=== PATIENT | male | born 1940 | race American Indian/Alaskan Native ===

== ENCOUNTER 2016-09-14 18:47 | Emergency (ER) | payer MEDICARE ==
[2016-09-14 19:16] VITALS: BMI 29.0
[2016-09-14 19:20] VITALS: TEMP 98.8
--- NOTE | 2016-09-14 21:13 | ED PDOC ---
Arrival/HPI - General Chief Complaint: Finger,Hand,&Wrist Time Seen by Provider: 09/14/16 19:20 Historian: Patient - History of Present Illness Narrative History of Present Illness (Text): 09/14/16 21:19 Patient reports sudden onset of atraumatic L wrist pain which started yesterday while he was driving home, states that he saw his pmd today and was sent for an outpatient XR, which he had done today at this hospital, but does not know the results. He adds that he was advised by his pmd to go to the ER to receive medication for his symptoms. Otherwise: (-) numbness, (-) other injury , (-) fever, (-) other joint pain. PMD Vaibhav Past Medical History - Provider Review Nursing Documentation Reviewed: Yes - Cardiac Hx Hypertension: Yes Hx Pacemaker: No - Neurological Hx Paralysis: No - Hematological/Oncological Hx Blood Transfusions: Yes Hx Blood Transfusion Reaction: No - Musculoskeletal/Rheumatological Hx Musculoskeletal Disorders: Yes (LOWER BACK) - Psychiatric Hx Emotional Abuse: No Hx Physical Abuse: No Hx Substance Use: No - Surgical History Other/Comment: Prostate surgery,"Bypass surgery" in 1979. - Anesthesia Hx Anesthesia Reactions: Yes (LONG TIME RECOVERING FROM SPINAL) Hx Malignant Hyperthermia: No - Suicidal Assessment Feels Threatened In Home Enviroment: No Family/Social History - Physician Review Nursing Documentation Reviewed: Yes Family/Social History: No Known Family HX Smoking Status: Never Smoked Hx Alcohol Use: Yes (2 TO 3 SHOTS SCOTCH ON WEEKENDS) Hx Substance Use: No Allergies/Home Meds Allergies/Adverse Reactions: Allergies No Known Allergies Allergy (Verified 03/28/15 04:50) Home Medications: Home Meds Medication Instructions Recorded Confirmed Aspirin 81 mg PO QAM 07/24/13 03/28/15 Atenolol [Tenormin] 12.5 tab PO QAM 07/24/13 03/28/15 Atorvastatin [Lipitor] 40 mg PO QAM 07/24/13 03/28/15 Gabapentin [Neurontin] 100 mg PO PRN PRN 11/01/14 03/28/15 NIFEdipine ER [Procardia XL] 1 tab PO DAILY 11/04/14 03/28/15 Review of Systems - Review of Systems Constitutional: Normal. absent: Fatigue, Weight Change, Fevers Musculoskeletal: Normal, Arthralgias. absent: Back Pain, Neck Pain Skin: Normal. absent: Rash, Pruritis, Skin Lesions Physical Exam - Physical Exam Narrative Physical Exam (Text): 09/14/16 21:17 GENERAL APPEARANCE: Patient is awake, alert, oriented x 3, in no acute distress. SKIN: Warm, dry; (-) cyanosis. WRIST: (+) Warm to touch, (+) tenderness to light touch, (+) swelling, (-) ecchymosis of the volar wrist. (-) deformity. (-) snuff-box tenderness. (-) distal neurovascular deficit. Elbow, hand and digits: (-) tenderness. Vital Signs Temp Pulse Resp BP Pulse Ox 09/14/16 19:16 98.8 F 57 L 18 162/84 H 95 Medical Decision Making ED Course and Treatment: 09/14/16 21:13 76 yo M c/o sudden onset of atraumatic L wrist pain, likely gout, consider carpal tunnerl syndrome. Of note, patient was seen in this ER on 03/28/15 for similar complaint of L wrist pain, at that time patient had mentioned that he has a h/o gout and that his symptoms were similar. XR L wrist: (-) fracture, as read by PA. Patient given toradol IM, colchicine 1.2 mg PO, followed by another dose of colchicine 0.6 mg an hour later to treat acute flare up of gout. Patient is requesting a splint for his wrist. Cock up splint applied. Based on history and exam, plan will be for outpatient follow up with pmd. RX sent to patient's pharmacy. Patient states he fully agrees with and understands discharge instructions. States that he agrees with the plan and disposition. Verbalized and repeated discharge instructions and plan. I have given the patient opportunity to ask any additional questions. Follow up with primary care physician in 1-2 days without fail. Advised to take medication as prescribed. Return to the emergency room at any time for any new or worsening symptoms. - Medication Orders Current Medication Orders: Colchicine (Colocrys) 1.2 mg PO ONCE ONE Stop: 09/15/16 20:01 Last Admin: 09/14/16 20:47 Dose: 1.2 MG Colchicine (Colocrys) 0.6 mg PO ONCE ONE Stop: 09/15/16 21:01 Discontinued Medications Ketorolac Tromethamine (Toradol) 60 mg IM STAT STA Stop: 09/14/16 19:56 Last Admin: 09/14/16 20:35 Dose: 60 MG IM Administration Charges Document 09/14/16 20:35 SF (Rec: 09/14/16 20:35 SF [id number] Injection Site MAR Injection Site Left Deltoid Charges for Administration # of IM Administrations 1 Disposition/Present on Arrival - Present on Arrival Any Indicators Present on Arrival: No History of DVT/PE: No History of Uncontrolled Diabetes: No Urinary Catheter: No History of Decub. Ulcer: No History Surgical Site Infection Following: None - Disposition Have Diagnosis and Disposition been Completed?: Yes Diagnosis: Left wrist pain, Gout Disposition: HOME/ ROUTINE Disposition Time: 21:22 Patient Plan: Discharge Condition: GOOD Discharge Instructions (ExitCare): Gout (ED), Arthralgia (ED) Print Language: CENTRAL AFRICAN Additional Instructions: Thank you for letting us take care of you today. You were treated for L wrist pain, likely gout. The emergency medical care you received today was directed at your acute symptoms. If you were prescribed any medication, please fill it and take as directed. It may take several days for your symptoms to resolve. Return to the Emergency Department if your symptoms worsen, do not improve, or if you have any other problems. Please contact your doctor in 2 days for re-evaluation and follow up. Bring any paperwork you were given at discharge with you along with any medications you are taking to your follow up visit. Our treatment cannot replace ongoing medical care by a primary care provider (PCP) outside of the emergency department. Thank you for allowing the [facility] team to be part of your care today. Prescriptions: Colchicine 0.6 mg PO DAILY #10 tablet Indomethacin [Indocin] 50 mg PO TID #15 cap
[2016-09-14 21:16] VITALS: BP 169/76; PULSE 60; RESP 16
[2016-09-14 21:43] VITALS: O2SAT 98
== END 2016-09-14 21:43 | disposition home or self-care (01) ==
LOC: ED 18:47
DX: M25.532 Pain in left wrist (principal); M10.9 Gout, unspecified
CPT/HCPCS: 96372; 99283; J1885

== ENCOUNTER 2016-10-06 14:30 | Emergency (ER) | payer MEDICARE ==
[2016-10-06 14:30] VITALS: BMI 29.0
[2016-10-06 14:52] VITALS: TEMP 97.8
--- NOTE | 2016-10-06 15:14 | ED PDOC ---
Arrival/HPI - General Chief Complaint: Lower Extremity Problem/Injury Time Seen by Provider: 10/06/16 14:52 Historian: Patient - History of Present Illness Narrative History of Present Illness (Text): 10/06/16 15:11 76 y/o male, pmh including htn/hyperlipidemia/cad, nkda, c/o lt. lower extremity with swelling and pain for months with no fall or trauma. Pt. stated that he has stockings at home, doesn't wear it, walks and stands alot which he also like his "salt." Pt. has no chest pain or shortness of breath, no palpitation, no dizziness, no fatigue, no shortness of breath upon exertion, no rash, no change in appetite, no other medical or psychological complaints. Past Medical History - Provider Review Nursing Documentation Reviewed: Yes - Cardiac Hx Hypertension: Yes - Pulmonary Hx Respiratory Disorders: No - Neurological Hx Neurological Disorder: No Hx Paralysis: No - HEENT Hx HEENT Disorder: No - Renal Hx Renal Disorder: No - Endocrine/Metabolic Hx Endocrine Disorders: No - Hematological/Oncological Hx Blood Transfusions: Yes Hx Blood Transfusion Reaction: No - Integumentary Hx Dermatological Disorder: No - Musculoskeletal/Rheumatological Hx Musculoskeletal Disorders: Yes (LOWER BACK) Hx Gout: Yes Other/Comment: NECK PAIN - Gastrointestinal Hx Gastrointestinal Disorders: No - Genitourinary/Gynecological Hx Prostate Problems: Yes - Psychiatric Hx Psychophysiologic Disorder: No Hx Emotional Abuse: No Hx Physical Abuse: No Hx Substance Use: No - Surgical History Other/Comment: Prostate SEED,CABG - Anesthesia Hx Anesthesia: Yes - Suicidal Assessment Feels Threatened In Home Enviroment: No Family/Social History - Physician Review Nursing Documentation Reviewed: Yes Family/Social History: Unknown Family HX Smoking Status: Never Smoked Hx Alcohol Use: Yes Hx Substance Use: No Allergies/Home Meds Allergies/Adverse Reactions: Allergies No Known Allergies Allergy (Verified 10/06/16 14:42) Home Medications: Home Meds Medication Instructions Recorded Confirmed Aspirin 81 mg PO QAM 07/24/13 10/06/16 Atenolol [Tenormin] 12.5 tab PO QAM 07/24/13 10/06/16 Atorvastatin [Lipitor] 40 mg PO QAM 07/24/13 10/06/16 Gabapentin [Neurontin] 100 mg PO PRN PRN 11/01/14 10/06/16 NIFEdipine ER [Procardia XL] 1 tab PO DAILY 11/04/14 10/06/16 Review of Systems - Review of Systems Constitutional: absent: Fatigue, Fevers Eyes: absent: Vision Changes ENT: absent: Hearing Changes Respiratory: absent: Cough Cardiovascular: Edema, Calf Pain. absent: Chest Pain Gastrointestinal: absent: Abdominal Pain, Nausea, Vomiting Musculoskeletal: absent: Arthralgias, Back Pain Neurological: absent: Headache, Dizziness, Focal Weakness, Speech Changes Physical Exam Vital Signs Reviewed: Yes Vital Signs Temp Pulse Resp BP Pulse Ox 10/06/16 16:44 49 L 18 151/65 H 98 10/06/16 15:27 97.8 F 46 L 18 153/69 H 98 10/06/16 14:43 97.8 F 46 L 16 153/69 H 100 Temperature: Afebrile Blood Pressure: Hypertensive Pulse: Bradycardic Respiratory Rate: Normal Appearance: Positive for: Well-Appearing, Non-Toxic, Comfortable Pain Distress: Mild Mental Status: Positive for: Alert and Oriented X 3 - Systems Exam Head: Present: Atraumatic, Normocephalic Pupils: Present: PERRL Extroacular Muscles: Present: EOMI Conjunctiva: Present: Normal Mouth: Present: Moist Mucous Membranes Neck: Present: Normal Range of Motion Respiratory/Chest: Present: Clear to Auscultation, Good Air Exchange. No: Respiratory Distress, Accessory Muscle Use, Wheezes, Decreased Breath Sounds, Rales, Retracting, Rhonchi, Tachypneic, Tender to Palpation Cardiovascular: Present: Regular Rate and Rhythm, Normal S1, S2, Other (2+ edema noted bilaterally. ). No: Murmurs Abdomen: Present: Normal Bowel Sounds. No: Tenderness, Distention, Peritoneal Signs, Rebound, Guarding Back: Present: Normal Inspection Upper Extremity: Present: Normal Inspection. No: Cyanosis, Edema Lower Extremity: Present: Normal Inspection, Other (bilateral lower extremities : no tenderness or swelling except 2+ pedal edema noted bilaterally with skin intact, no laceration or abrasion, FROM without limitation, sensation intact, motor 5/5, +DPPT pulses, capillary refill< 2 seconds, neurovascular intact. ). No: Edema Neurological: Present: GCS=15, CN II-XII Intact, Speech Normal Skin: Present: Warm, Dry, Normal Color. No: Rashes Psychiatric: Present: Alert, Oriented x 3, Normal Insight, Normal Concentration Medical Decision Making ED Course and Treatment: 10/06/16 15:15 -labs/bnp -LLE venuous doppler -EKG for bradycardia which might be from atenolol -IV 10/06/16 17:26 -EKG:Sinus Bradycardia @ 48 BPM, no ST elevation or depression, no T wave inversion, 1st degree AV block, compared with previous ekg. -LLE venuous doppler show as per preliminary report, no acute DVT. -Labs show no acute findings except BNP 600 with no previous comparison, Creatin 1.7 from 2.2 -I discussed all labs with the patient, advised to readjust atenolol dosage with his resist coater developer DR. Marcus and PMD including the bradycardia at upper 40s and BNP 600 with pedal edema but no cardiopulmonary complaints at this time. -I discussed with DR. Lee about the BNP level and agreed no diuretic indicated at this this time as the patient will see his pmd on this upcoming tuesday which is 2 days from today. -Discharge home with education on follow up with your own pmd and Dr. Marcus ( resist coater developer) within 2 days regarding about the BNP level 600 with bilateral pedal edema plus adjust your atenolol level if you feel fatigue, continue your stockings, elevation of leg, avoid excessive walking or standing, decrease salt intake, return to the ER for any new or worsening signs or symptoms. - Lab Interpretations Lab Results: 10/06/16 16:00 10/06/16 16:00 Lab Results 10/06/16 16:00: Sodium 143, Potassium 4.0, Chloride 105, Carbon Dioxide 28, Anion Gap 14, BUN 19, Creatinine 1.7 H, Est GFR ( Amer) 47, Est GFR (Non- Af Amer) 39, Random Glucose 94, Calcium 9.4, Total Bilirubin 0.5, AST 27, ALT 30 , Alkaline Phosphatase 69, NT-Pro-B Natriuret Pep 600 H, Total Protein 7.9, Albumin 4.1, Globulin 3.7, Albumin/Globulin Ratio 1.1 10/06/16 16:00: WBC 3.6 L, RBC 3.15 L, Hgb 10.0 L, Hct 30.0 L, MCV 95.2, MCH 31.7, MCHC 33.3, RDW 14.5, Plt Count 207, MPV 11.7 H, Gran % 39.5 L, Lymph % ( Auto) 46.7 H, [place] % (Auto) 7.5 H, Eos % (Auto) 5.5 H, Baso % (Auto) 0.8, Gran # 1.43, Lymph # 1.7, [place] # 0.3, Eos # 0.2, Baso # 0.03 I have reviewed the lab results: Yes Interpretation: Abnormal lab values (BNP 600 with no previous comparison, Creatin 1.7 from 2.2) - RAD Interpretation Radiology Orders: 10/06/16 15:10 DUPLEX LOWER EXTRM VEIN LEFT [US] Stat As per preliminary report, no acute DVT Platinum Smith: Radiologist - EKG Interpretation EKG Interpretation (Text): 10/06/16 15:44 Sinus Bradycardia @ 48 BPM, no ST elevation or depression, no T wave inversion, 1st degree AV block, compared with previous ekg. Interpreted by ED Physician: Yes Type: 12 lead EKG Comparison: Com.w/previous EKG - PA / PALLETIZER / Resident Statement MD/DO has reviewed & agrees with the documentation as recorded. Disposition/Present on Arrival - Present on Arrival Any Indicators Present on Arrival: No History of DVT/PE: No History of Uncontrolled Diabetes: No Urinary Catheter: No History of Decub. Ulcer: No History Surgical Site Infection Following: None - Disposition Have Diagnosis and Disposition been Completed?: Yes Diagnosis: Pedal edema, Leg pain, left, Elevated brain natriuretic peptide (BNP) level Disposition: HOME/ ROUTINE Disposition Time: 17:31 Patient Plan: Discharge Condition: GOOD Additional Instructions: Discharge home with education on follow up with your own pmd and Dr. Marcus ( resist coater developer) within 2 days regarding about the BNP level 600 with bilateral pedal edema plus adjust your atenolol level if you feel fatigue, take tylenol for pain as needed, continue your stockings, elevation of leg, avoid excessive walking or standing, decrease salt intake, return to the ER for any new or worsening signs or symptoms. Referrals: Sukhdeep Landis MD [Primary Care Provider] - Follow up with primary Raymundo Marcus MD [Staff Provider] - Follow up with primary Forms: WORK NOTE
[2016-10-06 15:27] VITALS: RESP 18; O2SAT 98
[2016-10-06 16:17] LABS: ADD MANUAL DIFF? NO
[2016-10-06 16:24] LABS: BASO # 0.03 K/mm3 (0.0-2.0); BASO % 0.8 % (0.0-3.0); EOS # 0.2 (0.0-0.7); EOS % 5.5 % (1.5-5.0); GRAN # 1.43 (1.4-6.5); GRAN % 39.5 % (50.0-68.0); LYMPH # 1.7 (1.2-3.4); LYMPH % 46.7 % (22.0-35.0); MEAN CELL VOLUME 95.2 fL (80.0-105.0); MEAN CORPUSCULAR HEMOGLOBIN 31.7 pg (25.0-35.0); MEAN CORPUSCULAR HGB CONC 33.3 g/dl (31.0-37.0); MEAN PLATELET VOLUME 11.7 fl (7.0-11.0); MONO # 0.3 (0.1-0.6); MONO % 7.5 % (1.0-6.0); PLATELET COUNT 207 10^3/uL (120.0-450.0); RED CELL DISTRIBUTION WIDTH 14.5 % (11.5-14.5); WHITE BLOOD COUNT 3.6 10^3/ul (4.5-11.0)
[2016-10-06 16:37] LABS: ALB/GLOB RATIO 1.1 (1.1-1.8); BILIRUBIN,TOTAL 0.5 mg/dL (0.2-1.3); CALCIUM 9.4 mg/dL (8.4-10.5); TOTAL PROTEIN 7.9 g/dL (5.8-8.3)
[2016-10-06 17:42] VITALS: BP 148/63; PULSE 51
--- NOTE | 2016-10-06 18:37 | CARD ---
APPROVED REPORT EKG Measurement Heart [id number] <Conclusion> Marked sinus bradycardia with sinus arrhythmia with 1st degree AV block Abnormal ECG
--- NOTE | 2016-10-06 18:38 | US ---
PROCEDURE: Left lower extremity venous US HISTORY: Leg pain and swelling. Evaluate for DVT. PHYSICIAN(S): Raymundo Bass MD. TECHNIQUE: Duplex sonography and color-flow Doppler with graded compression were used to evaluate the deep venous system of the left lower extremity. FINDINGS: The visualized deep venous system of the left lower extremity is sonographically normal and compressible. Normal wave forms and augmentation are seen. There is no sonographic evidence for deep venous thrombosis in the visualized segments of the left lower extremity. IMPRESSION: 1. No sonographic evidence for deep venous thrombosis in the visualized segments of the left lower extremity.
== END 2016-10-06 17:47 | disposition home or self-care (01) ==
LOC: ED 14:30
DX: M79.605 Pain in left leg (principal); R60.0 Localized edema; R79.89 Other specified abnormal findings of blood chemistry; I10 Essential (primary) hypertension; E78.5 Hyperlipidemia, unspecified; I25.10 Atherosclerotic heart disease of native coronary artery without angina pectoris

== ENCOUNTER 2017-04-24 14:09 | Emergency (ER) | payer MEDICARE ==
[2017-04-24 14:17] VITALS: BMI 29.0
[2017-04-24 14:24] VITALS: TEMP 97.7
[2017-04-24] MEDS ORDERED: Ipratropium 0.02% Inhal Soln (0.5 mg/2.5 ml) UD IH STA (14:44)
[2017-04-24 15:31] LABS: BASO # 0.02 K/mm3 (0.0-2.0); BASO % 0.5 % (0.0-3.0); EOS # 0.3 (0.0-0.7); EOS % 7.2 % (1.5-5.0); GRAN # 2.05 (1.4-6.5); GRAN % 48.8 % (50.0-68.0); HEMATOCRIT 29.1 % (42.0-52.0); LYMPH # 1.5 (1.2-3.4); LYMPH % 36.3 % (22.0-35.0); MEAN CELL VOLUME 95.7 fl (80.0-105.0); MEAN CORPUSCULAR HEMOGLOBIN 31.6 pg (25.0-35.0); MEAN PLATELET VOLUME 11.3 fl (7.0-11.0); MONO # 0.3 (0.1-0.6); MONO % 7.2 % (1.0-6.0); RED CELL DISTRIBUTION WIDTH 14.3 % (11.5-14.5); WHITE BLOOD COUNT 4.2 10^3/ul (4.5-11.0)
[2017-04-24 15:34] LABS: VENOUS BLOOD GAS BASE EXCESS 1.5 mmol/L (0.0-2.0); VENOUS BLOOD PH 7.38 (7.32-7.43)
[2017-04-24 15:48] LABS: INR 1.1 (0.93-1.08); PARTIAL THROMBOPLASTIN TIME 29.5 Seconds (25.1-36.5)
[2017-04-24 15:52] LABS: POTASSIUM 3.9 mmol/L (3.6-5.0)
[2017-04-24 16:01] LABS: TROPONIN I 0.02 ng/mL
[2017-04-24 16:46] LABS: ALB/GLOB RATIO 1.3 (1.1-1.8); BILIRUBIN,TOTAL 0.6 mg/dL (0.2-1.3); CALCIUM 9.4 mg/dL (8.4-10.5); TOTAL PROTEIN 7.8 g/dL (5.8-8.3)
[2017-04-24 17:14] VITALS: PULSE 49; RESP 17; O2SAT 97
--- NOTE | 2017-04-24 17:19 | ED PDOC ---
Arrival/HPI - General Chief Complaint: Cough, Cold, Congestion Time Seen by Provider: 04/24/17 14:25 Historian: Patient - History of Present Illness Narrative History of Present Illness (Text): 04/24/17 17:21 A 77 year old male presents to the emergency department complaining of dry cough. Patient with past medical history of hyperlipidemia, CAD and hypertension , recently placed on Lisinopril, formerly on Nifedipine. PMD prescribed him Lisinopril a month ago, only took it for two weeks, stopped when he had a side effect of cough. Patient is now complaining of persistent chronic dry cough for a month. After PMD stopped Lisinopril 2 weeks ago, cough persisted. Since then, cough recalcitrant to a course of azithromycin and prescription of tessalon perles. PMD switched patient to hydrochlorothiazide. Patient denies any shortness of breath, fever, chills, palpitations, mucus expectoration or any other complaints at this time. Time/Duration: Other (month) Symptom Onset: Sudden Symptom Course: Unchanged Activities at Onset: Rest Context: Home Past Medical History - Provider Review Nursing Documentation Reviewed: Yes - Infectious Disease Hx of Infectious Diseases: None - Cardiac Hx Hypertension: Yes Other/Comment: 1 bypass 1980 - Pulmonary Hx Respiratory Disorders: No - Neurological Hx Neurological Disorder: No Hx Paralysis: No - HEENT Hx HEENT Disorder: No - Renal Hx Renal Disorder: No - Endocrine/Metabolic Hx Endocrine Disorders: No - Hematological/Oncological Hx Blood Transfusions: Yes Hx Blood Transfusion Reaction: No - Integumentary Hx Dermatological Disorder: No - Musculoskeletal/Rheumatological Hx Musculoskeletal Disorders: Yes (LOWER BACK) Hx Gout: Yes Other/Comment: NECK PAIN - Gastrointestinal Hx Gastrointestinal Disorders: No - Genitourinary/Gynecological Hx Prostate Problems: Yes - Psychiatric Hx Psychophysiologic Disorder: No Hx Substance Use: No - Surgical History Hx Coronary Artery Bypass Graft: Yes - Anesthesia Hx Anesthesia: Yes Hx Anesthesia Reactions: No Hx Malignant Hyperthermia: No - Suicidal Assessment Feels Threatened In Home Enviroment: No Family/Social History - Physician Review Nursing Documentation Reviewed: Yes Family/Social History: No Known Family HX Smoking Status: Never Smoked Hx Alcohol Use: Yes Hx Substance Use: No Allergies/Home Meds Allergies/Adverse Reactions: Allergies No Known Allergies Allergy (Verified 10/06/16 14:42) Home Medications: Home Meds Medication Instructions Recorded Confirmed Aspirin 81 mg PO QAM 07/24/13 04/24/17 Atorvastatin [Lipitor] 40 mg PO QAM 07/24/13 04/24/17 Gabapentin [Neurontin] 100 mg PO PRN PRN 11/01/14 04/24/17 cloNIDine [Catapres] 0.1 mg PO BID 04/24/17 04/24/17 Review of Systems - Physician Review All systems were reviewed & negative as marked: Yes - Review of Systems Constitutional: absent: Fevers, Other (chills) Respiratory: Cough. absent: SOB Cardiovascular: absent: Palpitations Physical Exam Vital Signs Reviewed: Yes Vital Signs Temp Pulse Resp BP Pulse Ox 04/24/17 17:13 49 L 17 111/48 L 97 04/24/17 14:11 97.7 F 86 16 191/88 H 98 Temperature: Afebrile Blood Pressure: Hypertensive Pulse: Regular Respiratory Rate: Normal Appearance: Positive for: Well-Appearing, Non-Toxic, Comfortable Pain Distress: None Mental Status: Positive for: Alert and Oriented X 3 - Systems Exam Head: Present: Atraumatic, Normocephalic Pupils: Present: PERRL Extroacular Muscles: Present: EOMI Conjunctiva: Present: Normal Mouth: Present: Moist Mucous Membranes Neck: Present: Normal Range of Motion Respiratory/Chest: Present: Clear to Auscultation, Good Air Exchange. No: Respiratory Distress, Accessory Muscle Use Cardiovascular: Present: Regular Rate and Rhythm, Normal S1, S2. No: Murmurs Abdomen: Present: Normal Bowel Sounds. No: Tenderness, Distention, Peritoneal Signs Back: Present: Normal Inspection Upper Extremity: Present: Normal Inspection. No: Cyanosis, Edema Lower Extremity: Present: Normal Inspection. No: Edema Neurological: Present: GCS=15, CN II-XII Intact, Speech Normal Skin: Present: Warm, Dry, Normal Color. No: Rashes Psychiatric: Present: Alert, Oriented x 3, Normal Insight, Normal Concentration Medical Decision Making ED Course and Treatment: 04/24/17 17:20 Impression: A 77 year old male with dry cough. Plan: -- EKG -- chest xray -- labs -- Urinalysis -- Atrovent -- Reassess and disposition Prior Visits: Notes and results from previous visits were reviewed. Patient last reported to the emergency department on 10/06/16 for evaluation of left lower extremity swelling and pain. Progress Notes: EKG: Ordered, reviewed, and independently interpreted the EKG. Rate : 64 BPM Rhythm : NSR Interpretation : Concomitant 1st deg av block, no other arrhythmogenic intervals , no ischemic ST/T segments Chest xray is negative. Labs show significant mild dehydration, baseline anemia , very slight creatininemia. Will discharge patient on trial of antitussives. - Lab Interpretations Lab Results: 04/24/17 15:15 04/24/17 15:15 Lab Results 04/24/17 15:15: Sodium 139, Chloride 103, Potassium 3.9, Carbon Dioxide 27, Anion Gap 13, BUN 22 H, Creatinine 2.0 H, Est GFR ( Amer) 39, Est GFR ( Non-Af Amer) 32, Random Glucose 107, Calcium 9.4, Total Bilirubin 0.6, AST 41, ALT 40, Alkaline Phosphatase 72, Lactate Dehydrogenase 667, Total Creatine Kinase 572 H, CK-MB (CK-2) Pending, CK-MB (CK-2) % Pending, Troponin I 0.02, NT- Pro-B Natriuret Pep 467 H, Total Protein 7.8, Albumin 4.4, Globulin 3.5, Albumin /Globulin Ratio 1.3 04/24/17 15:15: pO2 43, VBG pH 7.38, VBG pCO2 46.0, VBG HCO3 27.2, VBG Total CO2 28.6 H, VBG O2 Sat (Calc) 82.7 H, VBG Base Excess 1.5, VBG Potassium 3.6, Sodium 138.0, Chloride 105.0, Glucose 109, Lactate 1.3, FiO2 21.0, Venous Blood Potassium 3.6 04/24/17 15:15: PT 12.0, INR 1.10 H, APTT 29.5 04/24/17 15:15: WBC 4.2 L, RBC 3.04 L, Hgb 9.6 L, Hct 29.1 L, MCV 95.7, MCH 31.6 , MCHC 33.0, RDW 14.3, Plt Count 212, MPV 11.3 H, Gran % 48.8 L, Lymph % (Auto) 36.3 H, Delta % (Auto) 7.2 H, Eos % (Auto) 7.2 H, Baso % (Auto) 0.5, Gran # 2.05 , Lymph # 1.5, Delta # 0.3, Eos # 0.3, Baso # 0.02 I have reviewed the lab results: Yes - RAD Interpretation Radiology Orders: 04/24/17 14:43 CHEST TWO VIEWS (PA/LAT) [RAD] Stat - EKG Interpretation Interpreted by ED Physician: Yes Type: 12 lead EKG - Medication Orders Current Medication Orders: Discontinued Medications Ipratropium [place] (Atrovent) 0.5 mg IH STAT STA Stop: 04/24/17 14:45 Last Admin: 04/24/17 15:45 Dose: 0.5 mg Nifedipine (Procardia) 10 mg PO ONCE ONE Stop: 04/24/17 17:01 - Scribe Statement The provider has reviewed the documentation as recorded by the [place] Ivory Provider Scribe Attestation: All medical record entries made by the Scribe were at my direction and personally dictated by me. I have reviewed the chart and agree that the record accurately reflects my personal performance of the history, physical exam, medical decision making, and the department course for this patient. I have also personally directed, reviewed, and agree with the discharge instructions and disposition. Disposition/Present on Arrival - Present on Arrival Any Indicators Present on Arrival: No History of DVT/PE: No History of Uncontrolled Diabetes: No Urinary Catheter: No History of Decub. Ulcer: No History Surgical Site Infection Following: None - Disposition Have Diagnosis and Disposition been Completed?: Yes Diagnosis: Cough Disposition: HOME/ ROUTINE Disposition Time: 17:23 Patient Plan: Discharge Patient Problems: Current Active Problems Problem Status Onset Cough Acute Condition: FAIR Discharge Instructions (ExitCare): Bronchospasm (ED) Print Language: HEBREW Additional Instructions: You have no evidence of pneumonia on your xray you are likley suffering from a chronic bronchitis , or reflex mediated cough. We have found no abnormalities in your blood test that could be contributing to your cough. If the cough is still persisitent within 2 weeks despite these antitussive rx, or if you begin to experience your shortness of rbeath/ blood tinged mucus, change in the color of your mucus, excessive mucus production then return to Emergency department or your pmd for a trial of antibiotics. Prescriptions: Hydrocodone/Chlorpheniramine [Tussionex] 5 ml PO Q6 PRN #150 ml PRN Reason: Cough Ipratropium [Atrovent HFA] 0.018 mg IH Q6 PRN #1 inhaler PRN Reason: Cough Referrals: Sukhdeep Landis MD [Primary Care Provider] - Follow up with primary Forms: Amorelie (Swazi)
--- NOTE | 2017-04-24 18:03 | RAD ---
HISTORY: cough congestion COMPARISON: No prior. TECHNIQUE: Chest PA and lateral FINDINGS: LUNGS: No active pulmonary disease. PLEURA: No significant pleural effusion identified. No pneumothorax apparent. CARDIOVASCULAR: Status post CABG. Normal heart size. OSSEOUS STRUCTURES: No significant abnormalities. VISUALIZED UPPER ABDOMEN: Normal. OTHER FINDINGS: None. IMPRESSION: No active disease.
[2017-04-24 18:26] VITALS: BP 184/91
--- NOTE | 2017-04-25 23:41 | CARD ---
APPROVED REPORT EKG Measurement Heart [id number] [id number] <Conclusion> Poor data quality, interpretation may be adversely affected Sinus rhythm with 1st degree AV block Minimal voltage criteria for LVH, may be normal variant Anterior infarct, age undetermined Abnormal ECG
== END 2017-04-24 18:30 | disposition home or self-care (01) ==
LOC: ED 14:09
DX: R05 Cough (principal); I25.10 Atherosclerotic heart disease of native coronary artery without angina pectoris; I10 Essential (primary) hypertension; E78.5 Hyperlipidemia, unspecified

== ENCOUNTER 2017-06-22 11:39 | Emergency (ER) | payer MEDICARE ==
[2017-06-22 11:40] VITALS: BMI 29.0
--- NOTE | 2017-06-22 12:24 | ED PDOC ---
Arrival/HPI - General Chief Complaint: Lower Extremity Problem/Injury Time Seen by Provider: 06/22/17 11:44 - History of Present Illness Narrative History of Present Illness (Text): 77 y/o M c PMHx CAD, s/p CABG, HTN p/w pedal edema x months. Total knee arthroplasty last month, both legs continue to be swollen since then. Notes that has begun to have pain in both legs as the swelling has increased. Denies chest pain or dyspnea. Denies fever, chills, abd pain, vomiting, diarrhea, numbness, weakness. For this same swelling, patient has seen configuration analyst Dr. Marcus and PMDs Sabiha/Maurice and has been taking Lasix and had negative venous doppler but this was prior to the knee procedure. Past Medical History - Infectious Disease Hx of Infectious Diseases: None - Cardiac Hx Cardiac Disorders: Yes Hx Hypertension: Yes Other/Comment: 1 bypass 1979 - Pulmonary Hx Respiratory Disorders: No - Neurological Hx Neurological Disorder: No Hx Paralysis: No - HEENT Hx HEENT Disorder: No - Renal Hx Renal Disorder: No - Endocrine/Metabolic Hx Endocrine Disorders: No - Hematological/Oncological Hx Blood Transfusions: Yes Hx Blood Transfusion Reaction: No - Integumentary Hx Dermatological Disorder: No - Musculoskeletal/Rheumatological Hx Musculoskeletal Disorders: Yes (LOWER BACK) Hx Gout: Yes Other/Comment: NECK PAIN - Gastrointestinal Hx Gastrointestinal Disorders: No - Genitourinary/Gynecological Hx Prostate Problems: Yes - Psychiatric Hx Psychophysiologic Disorder: No Hx Substance Use: No - Surgical History Hx Coronary Artery Bypass Graft: Yes Hx Joint Replacement: Yes (right knee 05/18/17) - Anesthesia Hx Anesthesia: Yes Hx Anesthesia Reactions: No Hx Malignant Hyperthermia: No - Suicidal Assessment Feels Threatened In Home Enviroment: No Family/Social History Family/Social History: No Known Family HX Smoking Status: Never Smoked Hx Alcohol Use: Yes Frequency of alcohol use: Socially Hx Substance Use: No Allergies/Home Meds Allergies/Adverse Reactions: Allergies No Known Allergies Allergy (Verified 06/22/17 12:15) Home Medications: Home Meds Medication Instructions Recorded Confirmed Atorvastatin [Lipitor] 40 mg PO QAM 07/24/13 06/22/17 cloNIDine [Catapres] 0.1 mg PO BID 04/24/17 06/22/17 Aspirin [Lo-Dose Aspirin EC] 81 mg PO DAILY 06/22/17 06/22/17 Review of Systems - Physician Review All systems were reviewed & negative as marked: Yes - Review of Systems Constitutional: absent: Fevers Respiratory: absent: SOB Physical Exam - Physical Exam Narrative Physical Exam (Text): Gen: NAD Head: NC/AT Eyes: PERRL ENT: MMM Neck: No midline tenderness. CV: Regular rate. Lungs: No crackles. Abd: Soft, nontender Extremities: R lower extremity edema knee down, L sided from calf down, pitting edema. Pain on palpation to feet dorsum. FROM x 4. Neuro: Sensation to light touch and motor intact in bilateral lower legs. Vital Signs Pulse Resp BP Pulse Ox 06/22/17 12:14 66 18 137/106 H 98 Medical Decision Making ED Course and Treatment: Venous doppler to rule out DVT in this protracted edema after recent procedure. Continue furosemide. No evidence of cellulitis on physical examination. Educate on proper PT, positioning. 06/22/17 15:53 US no DVT as per performing customer data technician. Will discharge home, f/u PMD, return to ED for worsening pain, fever, dyspnea, chest pain, redness, or any other problem. - RAD Interpretation Radiology Orders: 06/22/17 12:35 DUPLEX LOWER EXTRM VEIN BILAT [US] Stat Disposition/Present on Arrival - Present on Arrival Any Indicators Present on Arrival: No History of DVT/PE: No History of Uncontrolled Diabetes: No Urinary Catheter: No History of Decub. Ulcer: No History Surgical Site Infection Following: None - Disposition Have Diagnosis and Disposition been Completed?: Yes Diagnosis: Peripheral edema Disposition: HOME/ ROUTINE Disposition Time: 15:55 Patient Plan: Discharge Condition: STABLE Discharge Instructions (ExitCare): Leg Edema (ED) Forms: [employer] ([employer])
[2017-06-22 16:22] VITALS: BP 135/95; PULSE 70; RESP 16; O2SAT 99
--- NOTE | 2017-06-22 19:17 | US ---
HISTORY: Leg pain and swelling. Evaluate for DVT recent right knee replacement PHYSICIAN(S): Raymundo Bass MD. TECHNIQUE: Duplex sonography and color-flow Doppler with graded compression were used to evaluate the deep venous systems of both lower extremities. The exam is limited by edema FINDINGS: The visualized deep venous systems of both lower extremities are sonographically normal and compressible. Normal wave forms and augmentation are seen. There is no sonographic evidence for deep venous thrombosis in the visualized segments of both lower extremities. IMPRESSION: No sonographic evidence for deep venous thrombosis in the visualized segments of both lower extremities.
== END 2017-06-22 16:20 | disposition home or self-care (01) ==
LOC: ED 11:39
DX: R60.0 Localized edema (principal); I10 Essential (primary) hypertension

== ENCOUNTER 2017-12-16 06:58 | Day surgery (SDC) | payer MEDICARE ==
[2017-12-09 12:19] VITALS: BMI 28.8
[2017-12-16] MEDS ORDERED: Lidocaine 2 GM Vial 2 GM/50 ML VIAL IV ONE (08:21)
[2017-12-16] MEDS ORDERED: Propofol 10 mg/ml Inj (20 ML) ONE (08:22)
[2017-12-16] MEDS ORDERED: Sodium Chloride 0.9% 1,000 ML IV SCH (09:45)
[2017-12-16 12:38] VITALS: BP 143/75; PULSE 62; RESP 15; TEMP 98.1; O2SAT 95
== END 2017-12-16 11:20 | disposition home or self-care (01) ==
LOC: ENDO 06:58
PROVIDERS: ATTEND Internal Medicine Gastroenterology
DX: D50.9 Iron deficiency anemia, unspecified (principal); K44.9 Diaphragmatic hernia without obstruction or gangrene; K57.30 Diverticulosis of large intestine without perforation or abscess without bleeding; K64.8 Other hemorrhoids; K55.20 Angiodysplasia of colon without hemorrhage
CPT/HCPCS: 43235; 45382; J2704; J7030

== ENCOUNTER 2018-06-07 07:20 | Outpatient (CLI) | payer MEDICARE | END 2018-06-07 07:21 | disposition home or self-care (01) | LOC: RAD 07:20 | DX: M50.020 Cervical disc disorder with myelopathy, mid-cervical region, unspecified level (principal) ==

== ENCOUNTER 2018-06-23 12:06 | Outpatient (CLI) | payer MEDICARE | END 2018-06-23 12:07 | disposition home or self-care (01) | LOC: RAD 12:06 ==